=== PATIENT | female | born 1955 | race Caucasian/White ===

== ENCOUNTER 2017-06-04 13:10 | Emergency (ER) | payer OTHER ==
[2017-06-04] MEDS ORDERED: Acetaminophen/HYDROcodone 325-5 MG Tab PO ONE (13:52)
[2017-06-04 14:03] VITALS: BP 135/87
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
--- NOTE | 2017-06-05 09:54 | CR ---
Chest and left ribs: Frontal view of the chest was obtained as well as three views of the left ribs. Comparison: No previous study. Heart size and mediastinum are normal. Lungs are clear. Minimal scoliosis is noted within the spine. No discrete fracture or other left-sided rib abnormality is seen. Impression: 1. No discrete left-sided rib abnormality is appreciated. Nondisplaced fracture could easily be missed. 2. Nothing acute is seen on accompanying chest x-ray. Diagnostic code #2
== END 2017-06-04 15:24 | disposition home or self-care (01) ==
LOC: JD.ED 13:10
DX: S30.1XXA Contusion of abdominal wall, initial encounter (principal); S70.11XA Contusion of right thigh, initial encounter; V49.50XA Passenger injured in collision with unspecified motor vehicles in traffic accident, initial encounter
CPT/HCPCS: 36415; 71101; 85025; 99284; A9270; 99283